=== PATIENT | female | born 1970 | race Caucasian/White ===

== ENCOUNTER 2023-06-28 01:37 | Inpatient (IN) | payer MEDICARE ==
[2023-06-28] MEDS ORDERED: NOREPINEPHRINE 8 MG/250 ML-D5W 250 ML ONE (01:49)
[2023-06-28 02:32] LABS: Troponin I Less than 0.010 ng/mL (< 0.028)
[2023-06-28] MEDS: Cefepime 1 GM in Sodium Chloride 0.9% 100 ML IVPB SCH (08:27)
[2023-06-28] MEDS ORDERED: Vancomycin 1.5 GM, Admixture Fee 1 EACH in Sodium Chloride 0.9% 250 ML 300 ML IVPB SCH (08:30)
[2023-06-28] MEDS: Sodium Chloride 0.9% 1,000 ML IV SCH (08:58)
[2023-06-28] MEDS: Enoxaparin 40 MG (0.4 mL) SYRINGE SC SCH (09:06)
[2023-06-28] MEDS: Famotidine 20 MG TAB PO SCH (09:06)
[2023-06-28] MEDS: Albumin 25% 25 GM (100 mL) BOT IVPB SCH (12:38)
[2023-06-28 13:12] LABS: HBSAg Index 0.25 S/CO (0-0.99); Hep B Surf Ag Non-Reactive S/CO (NonReactive)
[2023-06-28] MEDS: Phenol 177 ML BOT PO SCH (14:02)
[2023-06-28 15:12] LABS: Hematocrit 33.5 % (34.9-44.5); Hemoglobin 11.2 g/dL (12.0-15.5); Mean Corpuscular HGB CONC 33.4 g/dL (32.0-36.0); Mean Corpuscular Hemoglobin 29.6 pg (27.0-33.0); Mean Corpuscular Volume 88.6 fl (81.6-98.3); Mean Platelet Volume 10.4 fl (7.4-10.4); RBC Distribution Width 15.9 % (11.5-14.5); Red Blood Cell (RBC) Count 3.78 10x6/uL (3.90-5.03); White Blood Cell (WBC) Count 6.2 10x3/uL (3.5-10.5)
[2023-06-28 15:13] LABS: Platelet Count 65 10x3/uL (150-450)
[2023-06-28 15:26] LABS: MDiff Complete? YES
[2023-06-28 16:13] LABS: Band 14 % (5-11); Eosinophils 3 % (0-10); Lymphocytes 11 % (21-51); Monocytes 1 % (0-10); Neutrophil 70 % (42-75); Reactive Lymphocytes 1 % (0-10)
[2023-06-28 16:17] LABS: Microcytosis SLIGHT = 6-15 cells (100X) (0-5/hpf); Tear Drops SLIGHT = 2-5 cells (100X) (0-1/hpf)
[2023-06-28 16:18] LABS: Burr Cells SLIGHT = 2-5 cells (100X) (0-1/hpf); Dohle Bodies SLIGHT; Platelet Adequacy Comment Appears Decreased; Toxic Granulation SLIGHT; Vacuoles SLIGHT
[2023-06-28 16:27] LABS: Free T4 (Free Thyroxine) 0.73 ng/dL (0.70-1.48); Thyroid Stimulating Hormone 1.6843 uIU/mL (0.35-4.94)
[2023-06-28 16:54] LABS: Actual Bicarbonate (HCO3a) 18.9 mEq/L (22-28); Analyzer IN Cardio CS ICU; CO2 Tension 28.3 mmHg (35.0-45.0); Calcium, Ionized (arterial) 1.09 mmol/L (1.12-1.30); Carboxyhemoglobin (COHb) 0.4 gm% (0.0-3.0); Hematocrit-ABG 36 % (36.0-47.0); Hemoglobin (Hb) 12.2 g/dL (12.0-16.0); O2 Tension (PaO2), arterial 59.1 mmHg (80.0-100.0); Potassium - ABG Lab 3.39 mmol/L (3.70-5.30); Puncture Site LBA; pH, Arterial 7.443 (7.35-7.45)
[2023-06-28 16:57] LABS: ALV-art Gradient 55.255 mmHg (0-20)
[2023-06-28] MEDS: Furosemide 40 MG (4 mL) VIAL SLOW IVP SCH (18:01)
[2023-06-28 19:21] LABS: HBCM Index 0.06 S/CO (0-0.79); Hep A IgM AB Non-Reactive S/CO (NonReactive); Hep A IgM S/CO 0.11 S/CO (0-0.79); Hep C IgG Ab Non-Reactive S/CO (NonReactive); Hep C Index 0.05 S/CO (0-0.79); Hepatitis B Core IgM Abs Non-Reactive S/CO (NonReactive)
[2023-06-28] MEDS: Vancomycin 1 GM in Sodium Chloride 0.9% 250 ML 250 ML IVPB SCH (20:08)
[2023-06-28] MEDS: Acetaminophen 325 MG TAB PO SCH (20:08)
[2023-06-28] MEDS: Cefepime 2 GM in Sodium Chloride 0.9% 100 ML IVPB SCH (20:08)
[2023-06-29] MEDS: NOREPINEPHRINE 8 MG/250 ML-D5W 250 ML IVPB SCH
[2023-06-29] MEDS: Phenol 177 ML BOT PO PRN (01:30)
[2023-06-29] MEDS: Albuterol 2.5 MG (3 mL) NEB NEB SCH (02:35)
[2023-06-29 04:53] LABS: Anion Gap 12 mmol/L (10-20); BUN (Urea Nitrogen) 15 mg/dL (9.8-20.1); Calc. Creatinine Clearance 98 mL/min (70-130); Calcium 7.4 mg/dL (7.8-10.44); Carbon Dioxide 21 mmol/L (22-29); Chloride 107 mmol/L (98-107); Estimated GFR 95; Glucose 84 mg/dL (70-105); Potassium 2.7 mmol/L (3.5-5.1); Sodium 137 mmol/L (136-145)
[2023-06-29 05:08] LABS: Hematocrit 30.1 % (34.9-44.5); Hemoglobin 10.2 g/dL (12.0-15.5); MDiff Complete? YES; Mean Corpuscular HGB CONC 33.9 g/dL (32.0-36.0); Mean Corpuscular Hemoglobin 29.7 pg (27.0-33.0); Mean Corpuscular Volume 87.8 fl (81.6-98.3); Mean Platelet Volume 10.7 fl (7.4-10.4); Platelet Count 49 10x3/uL (150-450); RBC Distribution Width 15.9 % (11.5-14.5); Red Blood Cell (RBC) Count 3.43 10x6/uL (3.90-5.03); White Blood Cell (WBC) Count 5.8 10x3/uL (3.5-10.5)
[2023-06-29] MEDS: Potassium Chloride 20 MEQ TAB PO SCH (06:18)
[2023-06-29 06:46] LABS: Band 4 % (5-11); Eosinophils 1 % (0-10); Lymphocytes 19 % (21-51); Monocytes 3 % (0-10); Neutrophil 72 % (42-75); Reactive Lymphocytes 1 % (0-10)
[2023-06-29 06:50] LABS: Hypochromia SLIGHT = 6-15 cells (100X) (0-5/hpf); Microcytosis SLIGHT = 6-15 cells (100X) (0-5/hpf); Ovalocytes SLIGHT = 2-5 cells (100X) (0-1/hpf); Platelet Adequacy Comment Appears Decreased
[2023-06-29] MEDS: Lactated Ringer's 1,000 ML IV SCH (11:30)
[2023-06-29] MEDS: Acetaminophen 325 MG TAB PO PRN (11:30)
[2023-06-29] MEDS ORDERED: VANCOMYCIN 1.25 GM/250 ML BAG 1.25 GM in Premix 1 BAG IVPB SCH (21:00)
[2023-06-29 21:18] LABS: Vancomycin, Trough 11.5 ug/mL
[2023-06-29] MEDS: VANCOMYCIN 1.25 GM/250 ML BAG 1.25 GM in Premix 1 BAG IVPB SCH (21:54)
[2023-06-30] MEDS: Furosemide 40 MG (4 mL) VIAL SLOW IVP SCH ×3 (02:43→17:13)
[2023-06-30 02:55] LABS: Anion Gap 13 mmol/L (10-20); BUN (Urea Nitrogen) 12 mg/dL (9.8-20.1); Calc. Creatinine Clearance 118 mL/min (70-130); Calcium 8.3 mg/dL (7.8-10.44); Carbon Dioxide 20 mmol/L (22-29); Chloride 111 mmol/L (98-107); Estimated GFR 105; Glucose 85 mg/dL (70-105); Magnesium 1.5 mg/dL (1.6-2.6); Potassium 3.6 mmol/L (3.5-5.1); Sodium 140 mmol/L (136-145)
[2023-06-30 03:10] LABS: Hematocrit 30.2 % (34.9-44.5); Hemoglobin 10.2 g/dL (12.0-15.5); Mean Corpuscular HGB CONC 33.8 g/dL (32.0-36.0); Mean Corpuscular Hemoglobin 29.2 pg (27.0-33.0); Mean Corpuscular Volume 86.5 fl (81.6-98.3); Mean Platelet Volume 10.8 fl (7.4-10.4); Platelet Count 57 10x3/uL (150-450); RBC Distribution Width 15.7 % (11.5-14.5); Red Blood Cell (RBC) Count 3.49 10x6/uL (3.90-5.03); White Blood Cell (WBC) Count 9.5 10x3/uL (3.5-10.5)
[2023-06-30 03:20] LABS: MDiff Complete? YES
[2023-06-30] MEDS: Tuberculin PPD 0.1 ML VIAL I-DERMAL SCH (05:08)
[2023-06-30] MEDS: LevoFLOXacin 750 mg/D5W 750 MG in Premix 1 BAG IVPB SCH (05:09)
[2023-06-30] MEDS: Magnesium 2 GM/50 ML(in water) 2 GM in Premix 1 BAG IVPB SCH (05:10)
[2023-06-30] MEDS: Potassium Chloride 20 MEQ TAB PO SCH (05:11)
[2023-06-30 05:33] LABS: Eosinophils 2 % (0-10); Lymphocytes 39 % (21-51); Monocytes 5 % (0-10); Neutrophil 53 % (42-75); Reactive Lymphocytes 1 % (0-10)
[2023-06-30 05:37] LABS: Anisocytosis SLIGHT = 6-15 cells (100X) (0-5/hpf); Hypochromia SLIGHT = 6-15 cells (100X) (0-5/hpf); Microcytosis SLIGHT = 6-15 cells (100X) (0-5/hpf); Platelet Adequacy Comment Appears Decreased
[2023-06-30] MEDS: Albumin 25% 25 GM (100 mL) BOT IVPB SCH ×2 (11:11→17:13)
[2023-06-30 11:51] LABS: Amphetamine Not Detected (NotDetected); Barbiturates Screen Not Detected (NotDetected); Benzodiazepine Screen Not Detected (NotDetected); Cocaine Metabolite Screen Not Detected (NotDetected); Methadone Not Detected (NotDetected); Methamphetamine Not Detected (NotDetected); Opiate Screen Detected (NotDetected); Oxycodone Screen Not Detected (NotDetected); Phencyclidine (PCP) Not Detected (NotDetected); THC/Cannabinoid Screen Not Detected (NotDetected); Tricyclic Screen Not Detected (NotDetected)
[2023-07-01] MEDS: Furosemide 40 MG (4 mL) VIAL SLOW IVP SCH (05:35)
[2023-07-01 05:37] LABS: Anion Gap 14 mmol/L (10-20); BUN (Urea Nitrogen) 16 mg/dL (9.8-20.1); Calc. Creatinine Clearance 114 mL/min (70-130); Calcium 9.2 mg/dL (7.8-10.44); Carbon Dioxide 25 mmol/L (22-29); Chloride 103 mmol/L (98-107); Estimated GFR 104; Glucose 89 mg/dL (70-105); Hemoglobin 10.7 g/dL (12.0-15.5); Mean Corpuscular HGB CONC 34.5 g/dL (32.0-36.0); Mean Corpuscular Hemoglobin 29.7 pg (27.0-33.0); Mean Corpuscular Volume 86.1 fl (81.6-98.3); Mean Platelet Volume 10.8 fl (7.4-10.4); Platelet Count 98 10x3/uL (150-450); Potassium 3.4 mmol/L (3.5-5.1); RBC Distribution Width 15.9 % (11.5-14.5); Sodium 139 mmol/L (136-145)
[2023-07-01 05:38] LABS: MDiff Complete? YES
[2023-07-01 06:41] LABS: Band 11 % (5-11); Lymphocytes 25 % (21-51); Monocytes 2 % (0-10); Neutrophil 58 % (42-75); Reactive Lymphocytes 4 % (0-10)
[2023-07-01 06:46] VITALS: BMI 26.3
[2023-07-01 06:46] LABS: Anisocytosis SLIGHT = 6-15 cells (100X) (0-5/hpf); Hypochromia SLIGHT = 6-15 cells (100X) (0-5/hpf); Macrocytosis SLIGHT = 6-15 cells (100X) (0-5/hpf); Microcytosis SLIGHT = 6-15 cells (100X) (0-5/hpf); Platelet Adequacy Comment Appears Decreased
[2023-07-01 09:43] LABS: Vancomycin, Trough 17.7 ug/mL
[2023-07-01] MEDS: Potassium Chloride 20 MEQ TAB PO SCH (11:36)
[2023-07-01] MEDS ORDERED: Vancomycin 1 GM in Sodium Chloride 0.9% 250 ML 250 ML IVPB SCH (22:00)
[2023-07-02 03:32] LABS: Hematocrit 29.4 % (34.9-44.5); Hemoglobin 10.3 g/dL (12.0-15.5); Mean Corpuscular Hemoglobin 30.7 pg (27.0-33.0); Mean Corpuscular Volume 87.8 fl (81.6-98.3); Mean Platelet Volume 10.5 fl (7.4-10.4); Platelet Count 174 10x3/uL (150-450); RBC Distribution Width 16.6 % (11.5-14.5); Red Blood Cell (RBC) Count 3.35 10x6/uL (3.90-5.03); White Blood Cell (WBC) Count 8.4 10x3/uL (3.5-10.5)
[2023-07-02 03:35] LABS: MDiff Complete? YES
[2023-07-02 03:44] LABS: Anion Gap 14 mmol/L (10-20); BUN (Urea Nitrogen) 22 mg/dL (9.8-20.1); Calc. Creatinine Clearance 113 mL/min (70-130); Carbon Dioxide 25 mmol/L (22-29); Chloride 104 mmol/L (98-107); Estimated GFR 104; Glucose 82 mg/dL (70-105); Magnesium 1.8 mg/dL (1.6-2.6); Potassium 3.6 mmol/L (3.5-5.1); Sodium 139 mmol/L (136-145)
[2023-07-02 04:04] LABS: HIV (1/2) Antibody/Antigen Non-Reactive (NonReactive); HIV 1/2 INDEX 0.18 S/CO (<1.00)
[2023-07-02 04:21] LABS: Platelet Adequacy Comment Appears Adequate; RBC Morph Comment Within Normal Limits
[2023-07-02 04:23] LABS: Band 6 % (5-11); Lymphocytes 38 % (21-51); Monocytes 14 % (0-10); Neutrophil 40 % (42-75); Reactive Lymphocytes 2 % (0-10)
[2023-07-02] MEDS: READ PPD TEST SITE PO SCH (10:37)
[2023-07-02] MEDS: Aluminum & Magnesium Hydroxide 60 ML, diphenhydrAMINE 150 MG, Lidocaine 2% Viscous Solu... SSW SCH (14:47)
[2023-07-03 05:47] LABS: #Monocytes 0.9 10x3/uL (0.0-1.1); #Neutrophils 2.6 10x3/uL (1.5-8.4); %Basophils 0.6 % (0.0-2.0); %Eosinophils 0.3 % (0.0-6.0); %Lymphocytes 45.3 % (18.0-47.0); %Monocytes 13.7 % (0.0-10.0); %Neutrophils 38.9 % (40.0-75.0); Hematocrit 31.9 % (34.9-44.5); Hemoglobin 10.9 g/dL (12.0-15.5); Mean Corpuscular HGB CONC 34.2 g/dL (32.0-36.0); Mean Corpuscular Hemoglobin 30.4 pg (27.0-33.0); Mean Corpuscular Volume 88.9 fl (81.6-98.3); Mean Platelet Volume 10.1 fl (7.4-10.4); Platelet Count 258 10x3/uL (150-450); RBC Distribution Width 16.9 % (11.5-14.5); Red Blood Cell (RBC) Count 3.59 10x6/uL (3.90-5.03); White Blood Cell (WBC) Count 6.8 10x3/uL (3.5-10.5)
[2023-07-03 05:48] LABS: Anion Gap 14 mmol/L (10-20); BUN (Urea Nitrogen) 19 mg/dL (9.8-20.1); Calc. Creatinine Clearance 107 mL/min (70-130); Calcium 9.1 mg/dL (7.8-10.44); Carbon Dioxide 24 mmol/L (22-29); Chloride 107 mmol/L (98-107); Estimated GFR 103; Glucose 100 mg/dL (70-105); Potassium 4.1 mmol/L (3.5-5.1); Sodium 141 mmol/L (136-145)
[2023-07-03 12:51] VITALS: BP 110/68; TEMP 98.1
[2023-07-03] MEDS: Fluconazole 100 MG TAB PO SCH (14:07)
[2023-07-05 12:13] LABS: QuantiFERON-TB Gold Plus Negative (Negative)
[2023-07-05 13:14] LABS: Fungitell Beta (1,3) D-Glucan Negative (.)
== END 2023-07-03 15:57 | disposition home or self-care (01) | DRG 871 ==
LOC: CSHERS 01:37 → CSHICU 03:27 → CSHTELE 07-02 04:24
PROVIDERS: ADMIT Hospitalist; ATTEND Internal Medicine
PROC: 4A033R1 Measurement of Arterial Saturation, Peripheral, Percutaneous Approach (ICD-10-PCS; principal; 2023-06-28)
PROC: 3E033XZ Introduction of Vasopressor into Peripheral Vein, Percutaneous Approach (ICD-10-PCS; 2023-06-28)
PROC: 3E03329 Introduction of Other Anti-infective into Peripheral Vein, Percutaneous Approach (ICD-10-PCS; 2023-06-28)
PROC: 30233J1 Transfusion of Nonautologous Serum Albumin into Peripheral Vein, Percutaneous Approach (ICD-10-PCS; 2023-06-28)
DX: A41.9 Sepsis, unspecified organism (principal); J96.01 Acute respiratory failure with hypoxia; R57.1 Hypovolemic shock; R65.21 Severe sepsis with septic shock; N17.9 Acute kidney failure, unspecified; J81.1 Chronic pulmonary edema; K76.0 Fatty (change of) liver, not elsewhere classified; I10 Essential (primary) hypertension; E78.5 Hyperlipidemia, unspecified; K52.9 Noninfective gastroenteritis and colitis, unspecified; F32.A Depression, unspecified; I95.9 Hypotension, unspecified; K74.60 Unspecified cirrhosis of liver; K75.81 Nonalcoholic steatohepatitis (NASH); D69.6 Thrombocytopenia, unspecified; F17.210 Nicotine dependence, cigarettes, uncomplicated; D64.9 Anemia, unspecified; E87.6 Hypokalemia; B37.31 Acute candidiasis of vulva and vagina; K12.1 Other forms of stomatitis; G62.9 Polyneuropathy, unspecified; G25.81 Restless legs syndrome; Z90.710 Acquired absence of both cervix and uterus; Z98.890 Other specified postprocedural states; Z88.2 Allergy status to sulfonamides; Z88.5 Allergy status to narcotic agent
CPT/HCPCS: 36415; 36416; 36600; 71045; 80048; 80074; 80202; 80306; 82040; 82140; 82533; 82565; 82805; 83735; 83880; 84300; 84439; 84443; 84484; 85025; 86480; 86580; 87040; 87070; 87116; 87205; 87206; 87389; 87449; 93005; 93010; 93306; 94640; 94760; 94762; 96374; J0692; J1650; J1940; J1956; J3370; J3475; J3490; J7030; J7050; J7120; J7611; P9047; Q0163